=== PATIENT | female | born 1970 | race Caucasian/White ===

== ENCOUNTER 2018-03-05 19:31 | Emergency (ER) | payer MEDICAID, OTHER ==
[2018-03-05 20:12] VITALS: BP 110/69
--- NOTE | 2018-03-05 20:33 | UC ---
Hand/Wrist HPI - HPI Summary HPI Summary: 47 y/o female presents to the urgent care c/o left thumb pain s/p pushing the choke on the lawnmower and hyper extending her thumb around 1900pm. Pain was severe after it happened. Now is dull 3/10 w/o any radiation or swelling. Pt has not taking anything to alleviate symptoms. Pt denies numbness or tingling sensation, SOB, chest pain, abdominal pain, N/V/D. - History Of Current Complaint Chief Complaint: UCUpperExtremity Stated Complaint: THUMB INJURY Time Seen by Provider: 03/05/18 20:30 Hx Obtained From: Patient Hx Last Menstrual Period: unknown ?: No - declines test Onset/Duration: Sudden Onset, Lasting Hours - 2hrs, Still Present Severity Initially: Moderate Severity Currently: Mild Pain Intensity: 3 Pain Scale Used: 0-10 Numeric Character Of Pain: Dull Aggravating Factor(s): Movement, Lifting, Extension Alleviating Factor(s): Rest Associated Signs And Symptoms: Negative: Swelling, Redness, Bruising, Fever, Weakness, Numbness/Tingling Related History: Dominant Hand Right - Allergies/Home Medications Allergies/Adverse Reactions: Allergies Allergy/AdvReac Type Severity Reaction Status Date / Time No Known Allergies Allergy Verified 03/05/18 20:13 Home Medications: Home Medications NK [No Home Medications Reported] 03/05/18 [History Confirmed 03/05/18] PMH/Surg Hx/FS Hx/Imm Hx Previously Healthy: Yes - Pt denies PMHX - Surgical History Surgical History: Yes Surgery Procedure, Year, and Place: C-sec x1, breast lump removed - Family History Known Family History: Positive: None - Pt denies FMHX - Social History Occupation: Employed Full-time Lives: With Family Alcohol Use: Occasionally Substance Use Type: None Smoking Status (MU): Current Some Day Smoker Type: eCigarettes Review of Systems Constitutional: Negative Skin: Negative Eyes: Negative ENT: Negative Respiratory: Negative Cardiovascular: Negative Gastrointestinal: Negative Genitourinary: Negative Motor: Negative Neurovascular: Negative Musculoskeletal: Other: - left thumb pain s/p injury Neurological: Negative Psychological: Negative Is Patient Immunocompromised?: No All Other Systems Reviewed And Are Negative: Yes Physical Exam - Summary Physical Exam Summary: Vital Signs Reviewed: Yes General: Well-Appearing, No Pain Distress, Well-Nourished female w/o any apparent distress Eyes: Positive: Conjunctiva Clear - PERRLA, EOMI ENT: Positive: Normal ENT inspection, Hearing grossly normal, Pharynx normal, TMs normal, Uvula midline Neck: Positive: Supple, Nontender, No Lymphadenopathy Respiratory: Positive: Chest non-tender, Lungs clear, Normal breath sounds, No respiratory distress Cardiovascular: Positive: RRR, No Murmur, Pulses Normal, Brisk Capillary Refill Abdomen Description: Positive: Nontender, No Organomegaly, Soft. Negative: CVA Tenderness (R), CVA Tenderness (L) Bowel Sounds: Positive: Present Musculoskeletal: Positive: Strength Intact, Other: Neurological Exam: Normal Musculoskeletal: Positive: LF hand is without obvious asymmetry or deformity when compared to the Rt hand. R # first phalanx w/o ecchymosis or swelling or any obvious deformity. No bony crepitus. Point tenderness over the medial aspect of the first MCPJ. FROM of left thumb . No scaphoid fullness or tenderness to direct palpation or axial load. Motor/sensory function of ulnar, radial, median nerves intact. Ulnar and radial pulses intact. Capillary refill intact. Psychological Exam: Normal Skin Exam: Normal Triage Information Reviewed: Yes Vital Signs: Initial Vital Signs Temp 99.6 F 03/05/18 20:06 Pulse 77 03/05/18 20:06 Resp 16 03/05/18 20:06 BP 110/69 03/05/18 20:06 Pulse Ox 99 03/05/18 20:06 Hand/Wrist Course/Dx - Course Course Of Treatment: 47 y/o female presents to the urgent care c/o left thumb pain s/p pushing the choke on the lawnmower and hyper extending her thumb around 1900pm. Pain was severe after it happened. Now is dull 3/10 w/o any radiation or swelling. Pt has not taking anything to alleviate symptoms. Pt denies numbness or tingling sensation, SOB, chest pain, abdominal pain, N/V/D. Hx obtained. LF hand X-ray ordered. Impression: There was no fracture, dislocation, soft tissue swelling or FB noted. Final read still pending. DR Langford agreed w/ interpretation and he recommended a thumb spica splint. Pt's hand immobilized with thumb spica by nurse. Pt advised if not improvement or worsening of symptoms to f/u with Orthopedic DR Cardoza in 1 week for further management. Pt advised to take ibuprofen PO and advised RICE. PT explained D/C instructions. PT understood and agreed with plan of care. - Differential Dx/Diagnosis Differential Diagnosis/HQI/PQRI: Contusion, Fracture, Sprain, Strain, Tendonitis Provider Diagnoses: 1- left thumb pain s/p injury. 2- Left thumb sprain Discharge - Sign-Out/Discharge Documenting (check all that apply): Patient Departure - d/c home All imaging exams completed and their final reports reviewed: No - Discharge Plan Condition: Stable Disposition: HOME Patient Education Materials: [employer] (ED) Referrals: Zoraida Jimenez MD [Primary Care Provider] - 1 Week Jonathon Cardoza MD [Medical Doctor] - 1 Week Additional Instructions: 1-Please take Ibuprofen PO q6-8hrs prn after meals to alleviate pain and swelling. 2-Please apply ice, keep your thumb immobilized with the splint. Avoid heavy lifting or strenuous exercise 3- Please f/u with Orthopedic Dr Cardoza or Tg in 1 week is not improvement of symptoms for further evaluation and treatment. 4- You will be notified of final radiology report tomorrow. - Billing Disposition and Condition Condition: STABLE Disposition: Home
--- NOTE | 2018-03-06 08:05 | RAD ---
HISTORY: left hand and thumb pain s/p injury COMPARISONS: None VIEWS: 2 , Frontal and lateral views of the left hand FINDINGS: BONE DENSITY: Normal. BONES: There is no displaced fracture. JOINTS: There is no arthropathy. ALIGNMENT: There is no dislocation. SOFT TISSUES: Unremarkable. OTHER FINDINGS: None. IMPRESSION: NO ACUTE OSSEOUS INJURY. IF SYMPTOMS PERSIST, RECOMMEND REPEAT IMAGING. R0
--- NOTE | 2018-03-06 08:13 | UC ---
- Progress Note Progress Note: xray reviewed no change Discharge - Sign-Out/Discharge Documenting (check all that apply): Post-Discharge Follow Up All imaging exams completed and their final reports reviewed: Yes - Discharge Plan Condition: Stable Disposition: HOME Patient Education Materials: [employer] (ED) Referrals: Zoraida Jimenez MD [Primary Care Provider] - 1 Week Jonathon Cardoza MD [Medical Doctor] - 1 Week Additional Instructions: 1-Please take Ibuprofen PO q6-8hrs prn after meals to alleviate pain and swelling. 2-Please apply ice, keep your thumb immobilized with the splint. Avoid heavy lifting or strenuous exercise 3- Please f/u with Orthopedic Dr Cardoza or Tg in 1 week is not improvement of symptoms for further evaluation and treatment. 4- You will be notified of final radiology report tomorrow. - Billing Disposition and Condition Condition: STABLE Disposition: Home
== END 2018-03-05 21:53 | disposition home or self-care (01) ==
LOC: UCEAST 19:31
DX: S63.602A Unspecified sprain of left thumb, initial encounter (principal); X50.9XXA Other and unspecified overexertion or strenuous movements or postures, initial encounter; Y93.89 Activity, other specified; Y92.9 Unspecified place or not applicable; Z72.0 Tobacco use
CPT/HCPCS: 99211; G0463